=== PATIENT | male | born 1995 | race Caucasian/White ===

== ENCOUNTER 2024-01-31 12:28 | Emergency (ER) | payer SELFPAY ==
[2024-01-31 12:33] VITALS: BP 140/104
[2024-01-31 13:04] LABS: % Basophils 0.8 % (0-2); % Eosinophils 6.9 % (0-6); % Immature Granulocytes 0.4 % (0-0.5); % Lymphocytes 21.1 % (20.5-51.1); % Monocytes 5.1 % (1.7-9.3); % Neutrophils 65.7 % (42.2-75.2); Absolute Basophils 0.1 10^3/uL (0-0.2); Absolute Eosinophils 0.7 10^3/uL (0-0.7); Absolute Lymphocytes 2.2 10^3/uL (1.2-3.4); Absolute Monocytes 0.5 10^3/uL (0.1-0.6); Absolute Neutrophils 6.8 10^3/uL (1.4-6.5); Hematocrit 45.7 % (39.0-52.0); Mean Corpuscular Hgb 30.2 pg (27.0-31.0); Mean Corpuscular Volume 86.4 fL (80.0-94.0); Mean Platelet Volume 10.2 fL (7.4-10.4); Nucleated Red Blood Cells % 0 % (-); Platelet Count 222 10^3/uL (130-400); Red Blood Cell Count 5.29 10^6/uL (4.70-6.10); Red Cell Dist. Width 12.6 % (11.5-14.5); White Blood Cell Count 10.4 10^3/uL (4.8-10.8)
[2024-01-31 13:20] LABS: ALT (SGPT) 21 U/L (0-50); AST (SGOT) 34 U/L (17-59); Albumin 4.8 g/dl (3.5-5.0); Alkaline Phosphatase 60 U/L (38-126); Blood Urea Nitrogen 14 mg/dl (9-20); Calcium 9.9 mg/dl (8.4-10.2); Carbon Dioxide 28 mmol/L (22-30); Chloride 105 mmol/L (98-107); Glucose 99 mg/dl (70-99); Lipase 84 U/L (23-300); Potassium 3.6 mmol/L (3.5-5.1); Sodium 142 mmol/L (135-145); Total Bilirubin 1.1 mg/dl (0.2-1.3); Total Protein 7.6 g/dl (6.3-8.2); eGFR > 60.00
--- NOTE | 2024-01-31 14:34 | ED.GENMED ---
History of Present Illness
General
Chief Complaint: Abdominal Symptoms
Source: patient
Exam Limitations: none
Time Seen by Provider: 01/31/24 13:47
Travel History
Have you had any contact with someone who has COVID-19?: No
Do you have any symptoms of coronavirus? Fever > 100 degrees, chills, cough, shortness of breath, sore throat, loss of taste or smell, muscle aches, or headache?: No
History of Present Illness
History of Present Illness:
Patient with vomiting at 5 AM. Has mostly improved but not totally resolved. No abdominal pain. No fever. No diarrhea or bloody stools. Thinks he ate bad sushi the other day. Symptoms are minimal at this time
Past History
Past History
ED Past Medical History: Asthma and Other (Crohn's disease, Iron def anemia, Cellulitis)
ED Past Surgical History: None
Social History
Tobacco: Non-smoker
Alcohol: Occasional
Drug: None
Personal: Single
Living: alone
Employment: Employed
Review of Systems
Review of Systems
All Other Systems: Not applicable
Constitutional: Denies fever
ABD/GI: Denies abdominal pain
Phy Exam
Physical Exam
Physical Exam:
GENERAL: Alert and oriented in no apparent distress
EYE: Orbits normal.
NECK: Supple
CARDIAC: Regular rate and rhythm without any obvious murmurs.
LUNGS: Clear breath sounds,normal
ABDOMEN: Soft, without focal tenderness or distention
NEUROLOGICAL: Alert and oriented , grossly non-focal
SKIN: Warm and dry, no rash or lesion, no discoloration, skin intact.
MUSCULOSKELETAL: No edema,no deformity.Good color
PSYCH: Normal and appropriate interaction.
Course
Orders/Labs/Results
Orders:
Orders
01/31/24 12:58
Complete Blood Count/With Diff Urgent
Comprehensive Metabolic Panel Urgent
Lipase Urgent
Abnormal Lab Results
01/31/24
12:58
Absolute Neuts (auto) 6.8 H 10^3/uL
(1.4-6.5)
Eosinophils % 6.9 H %
(0-6)
01/31/24 12:58
01/31/24 12:58
Vital Signs
Initial and Last Documented VS:
Initial Vital Signs
Temp Pulse Resp BP Pulse Ox
98.0 F 48 16 140/104 100
01/31/24 12:33 01/31/24 12:33 01/31/24 12:33 01/31/24 12:33 01/31/24 12:33
Last Documented Vital Signs
Temp Pulse Resp BP Pulse Ox
98.0 F 48 16 140/104 100
01/31/24 12:33 01/31/24 12:33 01/31/24 12:33 01/31/24 12:33 01/31/24 12:33
MDM/Problems Addressed
Differential Diagnosis Includes:
Patient with no acute surgical findings. Is nontoxic in no distress. Not dehydrated. Improving symptoms. No indication for radiologic testing. Symptomatic treatment and follow-up
*Pulse Oximetry
Patient hypoxic: no
*Critical Care Note
Total Time (30-74mins, 75-104mins- exclusive of procedures): Not Applicable
ED Attending Note
-
Portions of this chart may have been created with voice recognition software.� Occasional wrong word or��sound alike� substitutions may have occurred due to the inherent limitations of voice recognition software.
Discharge Plan
Departure
Patient Disposition: Home (Routine Discharge)
Date of Disposition: 01/31/24
Time of Disposition: 14:35
Patient with high blood pressure during this ER visit?: Yes
Discharge Problem:
Acute vomiting
Instructions: Nausea and Vomiting, Adult (DC), BLOOD PRESSURE
Prescriptions:
New
ondansetron 4 mg tablet,disintegrating
4 mg PO TIDPRN PRN (Reason: nausea/vomiting) Qty: 7 0RF
No Action
benzonatate 100 MG capsule
100 mg PO TIDPRN PRN (Reason: cough) Qty: 30 0RF
epinephrine [EpiPen] 0.3 MG/0.3/SYRINGE auto-injector
0.3 mg IM ONCE Qty: 1 0RF
methylprednisolone [Medrol (Sudhir)] 4 MG tablets,dose pack
4 tab PO . DIRECT Qty: 1 0RF
Referrals:
UNKNOWN - PT DOES,NOT KNOW [Family Provider] -
Stand Alone Forms: Return to Work
Activity Restrictions/Additional Instructions:
Recheck with persistent symptoms abdominal pain fever or if not resolved in 1 to 2 days
Interventions
Interventions:
*ED COVID-19 Vaccine History Last Done: 01/31/24 12:33
KX-Wmctfo-Ebapanziky Assessment Last Done: 01/31/24 14:17
Discharge Date and Time
Print Language: CHILEAN
[2024-01-31 14:47] VITALS: BP 124/80
== END 2024-01-31 14:50 | disposition home or self-care (01) ==
LOC: EMR 12:28
PROVIDERS: Emergency Medicine; EMERGENCY PHYSICIAN Emergency Medicine
DX: R11.2 Nausea with vomiting, unspecified (principal); J45.909 Unspecified asthma, uncomplicated; K50.90 Crohn's disease, unspecified, without complications; D50.9 Iron deficiency anemia, unspecified
CPT/HCPCS: 99283; 80053; 83690; 85025

== ENCOUNTER 2024-02-23 08:54 | Emergency (ER) | payer SELFPAY ==
[2024-02-23 08:55] VITALS: BP 129/70
--- NOTE | 2024-02-23 09:26 | ED.GENMED ---
History of Present Illness
<Mikayla Christian PA-C - Last Filed: 02/23/24 22:45>
General
Chief Complaint: Oral/Mouth Problem
Source: patient
Exam Limitations: none
Time Seen by Provider: 02/23/24 09:15
Nursing documentation reviewed up to this point in time: agreed with
History of Present Illness
History of Present Illness:
Patient is a 28 year old male with hx asthma, Crohns presenting to the emergency department for evaluation of dental pain. Patient states that he has intermittent dental pain over the past year which usually self resolves with ibuprofen and Orajel.
Patient states that yesterday the pain was more severe. Patient reports pain in his right upper molars and left lower molars. He did take ibuprofen but did not notice much improvement. Patient came to the emergency department for further
evaluation.
Patient denies any associated fever, chills, nausea, vomiting. Patient denies any chest pain or shortness of breath.
Patient does not currently have medical or dental insurance. He has not seen a dentist in many years.
Patient currently vapes. No history of IV drug use
Past History
<Mikayla Christian PA-C - Last Filed: 02/23/24 22:45>
Past History
ED Past Medical History: Asthma and Other (Crohn's disease, Iron def anemia, Cellulitis)
ED Past Surgical History: None
Social History
Tobacco: Non-smoker
Alcohol: Occasional
Drug: None
Personal: Single
Living: alone
Employment: Employed
Review of Systems
<ILENE Ambrosio Last Filed: 02/23/24 22:45>
Review of Systems
Allergies reviewed?: Yes
All Other Systems: ROS reviewed and negative except as documented in HPI and ROS
Phy Exam
<Mikayla Christian PA-C - Last Filed: 02/23/24 22:45>
Physical Exam
Physical Exam:
Vitals: Patient's vital signs are stable. Afebrile
General: Patient is well appearing, no acute distress. Nontoxic appearing
Skin: Warm and dry, no rashes or lesions
Head: Normocephalic, atraumatic
Eyes: Sclera nonicteric. EOMs intact. No nystagmus.
Mouth: Poor dentition. Multiple dental caries. Tenderness overlying gingiva above tooth #1 and tooth #17. No evidence of abscess. Patient handling oral secretions. No elevation of tongue.
Throat: Uvula midline. protecting airway
Neck: Normal ROM, no cervical spine tenderness, no meningismus. No cervical lymphadenopathy. No erythema, swelling or tenderness of neck
Cardiac: Regular rate and rhythm, no murmurs.
Pulm: Normal respiratory effort, no wheezes, rales, rhonchi heard on exam.
Abdomen: No abdominal tenderness.
Extremities: No evidence of cyanosis or edema
Neuro: AAOx3. CN II-XII intact. No focal neurologic deficits.
Psychiatric: Normal affect.
Course
<Mikayla Christian PA-C - Last Filed: 02/23/24 22:45>
Orders/Labs/Results
Orders:
Orders
02/23/24 10:25
Acetaminophen [Tylenol] 650 mg PO NOW STA
Amoxicillin 875 mg/Clav 125 mg [Augmentin 875 mg/125 mg] 1 tablet PO NOW STA
Vital Signs
Initial and Last Documented VS:
Initial Vital Signs
Temp Pulse Resp BP Pulse Ox
97.6 F 63 16 129/70 98
02/23/24 08:55 02/23/24 08:55 02/23/24 08:55 02/23/24 08:55 02/23/24 08:55
Last Documented Vital Signs
Temp Pulse Resp BP Pulse Ox
97.6 F 72 18 130/91 99
02/23/24 08:55 02/23/24 11:04 02/23/24 11:04 02/23/24 11:04 02/23/24 11:04
<Darian Baxter MD - Last Filed: 02/23/24 17:16>
Orders/Labs/Results
Orders:
Orders
02/23/24 10:25
Acetaminophen [Tylenol] 650 mg PO NOW STA
Amoxicillin 875 mg/Clav 125 mg [Augmentin 875 mg/125 mg] 1 tablet PO NOW STA
Vital Signs
Initial and Last Documented VS:
Initial Vital Signs
Temp Pulse Resp BP Pulse Ox
97.6 F 63 16 129/70 98
02/23/24 08:55 02/23/24 08:55 02/23/24 08:55 02/23/24 08:55 02/23/24 08:55
Last Documented Vital Signs
Temp Pulse Resp BP Pulse Ox
97.6 F 72 18 130/91 99
02/23/24 08:55 02/23/24 11:04 02/23/24 11:04 02/23/24 11:04 02/23/24 11:04
<Mikayla Christian PA-C - Last Filed: 02/23/24 22:45>
MDM/Problems Addressed
Differential Diagnosis Includes:
Not limited to: Dental infection, dental caries, dental pain, dental abscess, etc.
MDM/Problems Addressed:
28 year old male presenting with acute on chronic dental pain. Patient uninsured and has not seen dentist in many years. No fevers, chills, difficulty swallowing, chest pain, or shortness of breath. No history of IVDU. Vitals stable. Exam as above.
Patient with poor dentition and multiple visible dental caries. No obvious abscess. No oral swelling or elevation of tongue. Uvula is midline. Patient is protecting airway. No erythema, swelling, or tenderness of anterior neck. Did provide patient
with multiple free dental clinics in the area. Stressed importance of prompt dental follow-up for definitive management of dental pain. Will provide patient with pain control and antibiotics. Stable for discharge
Chronic conditions affecting care:
Poor dentition, dental caries
Acute Exacerbation and/or Progression of Chronic Illness:
N/A
<Mikayla Christian PA-C - Last Filed: 02/23/24 22:45>
*Pulse Oximetry
Patient hypoxic: no
*EKG
Interpreted by ED Provider?: NA
*Banking Center Manager Interpretation
Rate: Banking Center Manager- N/A
*Critical Care Note
Total Time (30-74mins, 75-104mins- exclusive of procedures): Not Applicable
ED Attending Note
<Mikayla Christian PA-C - Last Filed: 02/23/24 22:45>
-
Portions of this chart may have been created with voice recognition software.� Occasional wrong word or��sound alike� substitutions may have occurred due to the inherent limitations of voice recognition software.
<Darian Baxter MD - Last Filed: 02/23/24 17:16>
ED Attending Note
Patient seen and examined by attending physician: Yes
ED Attending Note:
I have seen and evaluated the patient with a [id number] encounter. I have spoken to the advance practicer provider and involved in the medical history, the physical exam, medical decision making.
Evaluation and management service: agree unless noted differently below.
Results interpretation: agree unless noted differently below.
Focused HPI: 28-year-old male presents with dental pain upper right molar and bottom left molar. He says these have been chronic and intermittent. He has poor dentition and has not followed up with a dentist in quite some time because he does not
have dental insurance. He says that since last night symptoms have been constant and unremitting which is why he finally came to the ER. Denies any facial swelling. No fevers or chills. No trauma. No other complaints.
Physical exam: Awake alert not in distress. Normal vitals. He has very poor dentition. He has visible dental caries in molars bilaterally. He has some mild tenderness to percussion tooth #1 and 17. No significant swelling. No tongue elevation.
Medical Decision Makin-year-old male presents with dental pain. Poor dentition and dental caries. Tenderness to percussion as above. No swelling. Suspect likely related to early dental infection and dental caries. Patient badly needs
dental evaluation. He does not have dental insurance. I provided him a list of free dental clinics that are available without any insurance in the area. Will provide short-term pain control and antibiotic prescription. I did offer dental block
but patient declined. Queried PDMP and no red flags.
Discharge Plan
Departure
Patient Disposition: Home (Routine Discharge)
Date of Disposition: 02/23/24
Time of Disposition: 10:26
Patient with high blood pressure during this ER visit?: No
Condition: Good
Covid-19: Not Applicable
Discharge Problem:
Pain due to dental caries
Instructions: Tooth Decay, Adult (DC), Dental Pain ED
Prescriptions:
New
oxycodone 5 mg tablet
5 mg PO Q6H PRN (Reason: Pain) Qty: 10 0RF
amoxicillin-pot clavulanate 875-125 mg tablet
1 tab PO BID Qty: 14 0RF
Referrals:
[facility] - Next open appointment
NONE,* [Family Provider] -
Activity Restrictions/Additional Instructions:
RETURN TO THE EMERGENCY DEPARTMENT WITH FEVERS, CHILLS, CHEST PAIN, SHORTNESS OF BREATH, DIFFICULTY SWALLOWING, SIGNS OF SEVERE DEHYDRATION, INTRACTABLE PAIN, SIGNIFICANT REDNESS/SWELLING IN MOUTH, WORSENING IN CURRENT SYMPTOMS, OR ANY OTHER CONCERNS
-A prescription for an antibiotic has been sent to your pharmacy. You should take this twice a day for the next 7 days. You were given your first dose in the emergency department today. Your next dose should be taken this evening.
-A prescription for oxycodone has been sent to your pharmacy. This should be taken for severe pain. This may cause drowsiness and should not be taken prior to driving. In addition�you should take Motrin and/or Tylenol as needed for pain.
-You should stick to a soft diet over the next few days. It is important to stay well-hydrated.
-As discussed�it is imperative that you are seen by a dentist for further dental care. Multiple
Interventions
Interventions:
*Risk Screen - Suicide Last Done: 02/23/24 10:35
*General Assessment Last Done: 02/23/24 10:35
*Neglect/Abuse Screening Last Done: 02/23/24 10:35
ED- Fall Risk Assessment Last Done: 02/23/24 10:35
*ED COVID-19 Vaccine History Last Done: 02/23/24 10:35
*Nursing Disposition Last Done: 02/23/24 11:07
Discharge Date and Time
Discharge Date/Time: 02/23/24 11:08
Print Language: [place]AST [place]
[2024-02-23 10:35] VITALS: BMI 23.6
[2024-02-23] MEDS: AUGMENTIN 875 MG/125 MG 1 TABLET PO (11:02)
[2024-02-23] MEDS: TYLENOL 650 MG PO (11:02)
[2024-02-23 11:04] VITALS: BP 130/91
== END 2024-02-23 11:08 | disposition home or self-care (01) ==
LOC: EMR 08:54
PROVIDERS: EMERGENCY PHYSICIAN Emergency Medicine
DX: K02.9 Dental caries, unspecified (principal)
CPT/HCPCS: 99283

== ENCOUNTER 2024-04-16 14:47 | Emergency (ER) | payer SELFPAY ==
[2024-04-16 14:55] VITALS: BP 137/85
[2024-04-16 15:38] LABS: COVID-19 Antigen Negative (Negative)
--- NOTE | 2024-04-16 16:21 | ED.GENMED ---
History of Present Illness
General
Chief Complaint: Cold/Flu/URI Symptoms
Source: patient
Exam Limitations: none
Time Seen by Provider: 04/16/24 15:31
Nursing documentation reviewed up to this point in time: agreed with
History of Present Illness
History of Present Illness:
29-year-old male with past ministry of asthma Crohn's disease presenting to the emergency department today with concerns of cough and sore throat. Started this morning claims that his work colleague claimed to have had strep yesterday but did not
tell until the end of the day and had multiple close exposures with him. Denies any fever chest pain shortness of breath.
Past History
Past History
ED Past Medical History: Asthma and Other (Crohn's disease, Iron def anemia, Cellulitis)
ED Past Surgical History: None
Social History
Tobacco: Non-smoker
Alcohol: Occasional
Drug: None
Personal: Single
Living: alone
Employment: Employed
Review of Systems
Review of Systems
Allergies reviewed?: Yes
All Other Systems: ROS reviewed and negative except as documented in HPI and ROS
Phy Exam
Physical Exam
Physical Exam:
GENERAL: Alert , in no apparent distress
EYE: pupils equal and reactive
NECK: Supple, no significant adenopathy.
ENT: o/p clr, mmm.
CARDIAC: Regular rate and rhythm .
LUNGS: Clear breath sounds bilaterally, no acute respiratory distress, no wheezes/rales/rhonchi
ABDOMEN: Soft, without focal tenderness, no r/g, no cvat
NEUROLOGICAL: Alert and oriented, no focal neuro deficits
SKIN: Warm and dry, skin intact.
MUSCULOSKELETAL: No edema, well perfused.
PSYCH: Normal and appropriate interaction.
Mild irritation of the posterior pharynx without significant exudate noted significant tonsillar swelling uvula midline grossly patent airway
Course
Orders/Labs/Results
Orders:
Orders
04/16/24 15:03
CR Chest - 2 Views Urgent
Comment:
Reason For Exam: cough
04/16/24 15:07
COVID-19 Antigen Urgent
Source: Nasal Swab
Rapid Strep Group A Urgent
JUAN Source: Throat/Pharynx
Specimen Description:
Date Specimen was Collected: 04/16/24
Time Specimen was Collected: 14:59
Throat Culture, Comprehensive Urgent
JUAN Source: Throat/Pharynx
Specimen Description:
Date Specimen was Collected: 04/16/24
Time Specimen was Collected: 14:59
04/16/24 16:18
Dexamethasone [Decadron] 10 mg PO NOW STA
Vital Signs
Initial and Last Documented VS:
Initial Vital Signs
Temp Pulse Resp BP Pulse Ox
98.3 F 64 18 137/85 99
04/16/24 14:55 04/16/24 14:55 04/16/24 14:55 04/16/24 14:55 04/16/24 14:55
Last Documented Vital Signs
Temp Pulse Resp BP Pulse Ox
98.3 F 64 18 137/85 99
04/16/24 14:55 04/16/24 14:55 04/16/24 14:55 04/16/24 14:55 04/16/24 14:55
MDM/Problems Addressed
MDM/Problems Addressed:
29-year-old male presenting to the emergency department today with concerns of cough sore throat. Here he is very well-appearing vital signs are normal posterior pharynx is mildly red but no significant swelling to the tonsils no exudate patient
does have a cough and no significant fever. Concerning the strep throat is very unlikely. Most likely viral syndrome return precautions given.
*Critical Care Note
Total Time (30-74mins, 75-104mins- exclusive of procedures): Not Applicable
ED Attending Note
-
Portions of this chart may have been created with voice recognition software.� Occasional wrong word or��sound alike� substitutions may have occurred due to the inherent limitations of voice recognition software.
Discharge Plan
Departure
Patient Disposition: Home (Routine Discharge)
Date of Disposition: 04/16/24
Time of Disposition: 16:26
Patient with high blood pressure during this ER visit?: No
Condition: Good
Covid-19: Not Applicable
Discharge Problem:
Acute viral syndrome
Instructions: Viral Syndrome (DC)
Prescriptions:
No Action
oxycodone 5 mg tablet
5 mg PO Q6H PRN (Reason: Pain) Qty: 10 0RF
amoxicillin-pot clavulanate 875-125 mg tablet
1 tab PO BID Qty: 14 0RF
Referrals:
NONE,* [Family Provider] -
Activity Restrictions/Additional Instructions:
You came to the emergency department today with concerns of cough and sore throat.. Here you had a reassuring assessment. This is likely viral syndrome. You were given a steroid to help with symptoms you and otherwise take symptomatic medications
at home. Return to the emergency department for any worsening, new or concerning symptoms.
Interventions
Interventions:
*Risk Screen - Suicide Last Done: 04/16/24 14:55
*General Assessment Last Done: 04/16/24 14:55
*Neglect/Abuse Screening Last Done: 04/16/24 14:55
Discharge Date and Time
Print Language: FAROESE
[2024-04-16] MEDS: DECADRON 10 MG PO (16:39)
== END 2024-04-16 16:53 | disposition home or self-care (01) ==
LOC: EMR 14:47
PROVIDERS: Emergency Medicine; EMERGENCY PHYSICIAN Emergency Medicine
DX: B34.9 Viral infection, unspecified (principal); J45.909 Unspecified asthma, uncomplicated; K50.90 Crohn's disease, unspecified, without complications; D50.9 Iron deficiency anemia, unspecified
CPT/HCPCS: 99283; 71046; 87070; 87811; 87880

== ENCOUNTER 2024-04-27 16:46 | Emergency (ER) | payer SELFPAY ==
[2024-04-27 16:47] VITALS: BP 126/79
--- NOTE | 2024-04-27 17:31 | ED.GENMED ---
History of Present Illness
General
Chief Complaint: Skin Problem
Time Seen by Provider: 04/27/24 17:31
History of Present Illness
History of Present Illness:
HPI: Patient presents with skin abnormality of the left hand. He thought he had a spider bite to the dorsal aspect of the left hand. He noticed that it seemed to open up a little bit more at work and his boss recommended he come in here for
further evaluation.
EXAM:
GENERAL: Well appearing in no distress
HEENT: Moist oral mucosa
NEUROLOGIC: Excellent strength all extremities, no coordination deficits
PSYCHIATRIC: Appropriate mental status, normal insight and judgement
EXTREMITIES: Nontender, no edema,, there is a very tiny bite wound that may be related to a spider bite but there is no evidence of cellulitis in the surrounding tissue
SKIN: The patient is heavily tattooed
TIME OF INITIAL ENCOUNTER: 5:30 PM
NUMBER AND COMPLEXITY OF PROBLEMS ADDRESSED AT THE ENCOUNTER
� Chronic conditions affecting care: Asthma, Crohn's, iron deficiency anemia
� Acute Exacerbation and/or Progression of Chronic Illness: This is an acute problem
� Differential Diagnosis includes: Spider bite with local inflammatory reaction, infection, abrasion
AMOUNT AND/OR COMPLEXITY OF DATA TO BE REVIEWED AND ANALYZED
� I performed an independent evaluation of and my interpretation is:
EKG:
CT:
X-rays:
Laboratory Studies:
Other:
� Review of other/old records: I reviewed records, the patient CBC from this past January was unremarkable
� Clinical information was obtained by an independent historian: None needed
� Prescriptions/Medications Considered but not given:
� Further testing considered but not performed:
RISK OF COMPLICATIONS AND/OR MORBIDITY OR MORTALITY OF PATIENT MANAGEMENT
� Social determinants of health affecting care: Lives at home, works at [employer]
� Discussion with other providers:
� Escalation of care including admission/observation vs risk of discharge considered: The patient's physical examination is relatively unremarkable. There are not even any significant inflammatory changes around the area of
concern. Given patient's concern, I am sending a prescription to his pharmacy however I recommend that he not start it and let symptoms worsen.
Past History
Past History
ED Past Medical History: Asthma and Other (Crohn's disease, Iron def anemia, Cellulitis)
ED Past Surgical History: None
Social History
Tobacco: Non-smoker
Alcohol: Occasional
Drug: None
Personal: Single
Living: alone
Employment: Employed
Phy Exam
Physical Exam
Physical Exam:
See HPI
Course
Vital Signs
Initial and Last Documented VS:
Initial Vital Signs
Temp Pulse Resp BP Pulse Ox
98.0 F 64 18 126/79 99
04/27/24 16:47 04/27/24 16:47 04/27/24 16:47 04/27/24 16:47 04/27/24 16:47
Last Documented Vital Signs
Temp Pulse Resp BP Pulse Ox
98.0 F 64 18 126/79 99
04/27/24 16:47 04/27/24 16:47 04/27/24 16:47 04/27/24 16:47 04/27/24 16:47
*Critical Care Note
Total Time (30-74mins, 75-104mins- exclusive of procedures): Not Applicable
ED Attending Note
-
Portions of this chart may have been created with voice recognition software.� Occasional wrong word or��sound alike� substitutions may have occurred due to the inherent limitations of voice recognition software.
Discharge Plan
Departure
Prescriptions:
No Action
oxycodone 5 mg tablet
5 mg PO Q6H PRN (Reason: Pain) Qty: 10 0RF
amoxicillin-pot clavulanate 875-125 mg tablet
1 tab PO BID Qty: 14 0RF
Referrals:
NONE,* [Family Provider] -
Interventions
Interventions:
*Risk Screen - Suicide Last Done: 04/27/24 17:25
*General Assessment Last Done: 04/27/24 17:25
*Neglect/Abuse Screening Last Done: 04/27/24 17:25
ED-Skin Assessment Last Done: 04/27/24 17:25
Discharge Date and Time
Print Language: SETSWA[place]
[2024-04-27 18:16] VITALS: BP 121/64
== END 2024-04-27 18:17 | disposition home or self-care (01) ==
LOC: EMR 16:46
PROVIDERS: EMERGENCY PHYSICIAN Emergency Medicine
DX: S60.562A Insect bite (nonvenomous) of left hand, initial encounter (principal); W57.XXXA Bitten or stung by nonvenomous insect and other nonvenomous arthropods, initial encounter; J45.909 Unspecified asthma, uncomplicated; K50.90 Crohn's disease, unspecified, without complications
CPT/HCPCS: 99282

== ENCOUNTER 2024-08-30 08:21 | Emergency (ER) | payer SELFPAY ==
[2024-08-30 08:23] VITALS: BP 152/102
--- NOTE | 2024-08-30 08:56 | EDRN ---
Pt has severe dental pain from R upper molar that just started last night, unable to get a dental appt for a couple of days.
[2024-08-30 08:57] VITALS: BMI 20.1
--- NOTE | 2024-08-30 08:59 | EDRN ---
Dr. Pulido ED resident in room w/ pt.
--- NOTE | 2024-08-30 09:07 | ED.GENMED ---
History of Present Illness
<Ashok Lyon MD, Resident - Last Filed: 08/30/24 11:00>
General
Chief Complaint: Oral/Mouth Problem
Source: patient
Time Seen by Provider: 08/30/24 09:06
Nursing documentation reviewed up to this point in time: agreed with
Travel History
Have you traveled to any high risk areas for coronavirus over the past 14 days?: No
Have you had any contact with someone who has COVID-19?: No
Do you have any symptoms of coronavirus? Fever > 100 degrees, chills, cough, shortness of breath, sore throat, loss of taste or smell, muscle aches, or headache?: No
History of Present Illness
History of Present Illness:
29-year-old male with PMH of Crohn's disease, asthma, who presented to the emergency department today with tooth pain that started last night. Patient rates pain '15/10' in the right upper molar with swelling that started about a week ago and
worsened last night. The pain does not radiate. Patient stated that he is not able to get in with his dentist until next week and decided to come in because of the worsening pain. Patient reports that he thinks his problem is from poor oral care.
He has had similar problems in the past but not to this degree. He has tried warm salt water in the past but did not do much. He does not take any pain medication at home but took '50 mg' Advil this morning which did not help. He denies headache,
or vision changes.
Past History
<Ashok Lyon MD, Resident - Last Filed: 08/30/24 11:00>
Past History
ED Past Medical History: Asthma and Other (Crohn's disease, Iron def anemia, Cellulitis)
ED Past Surgical History: None
Social History
Tobacco: Non-smoker
Alcohol: Occasional
Drug: None
Personal: Single
Living: alone
Employment: Employed
Review of Systems
<Ashok Lyon MD, Resident - Last Filed: 08/30/24 11:00>
Review of Systems
Other source history: family
Constitutional: Reports no symptoms
EENT: Reports mouth pain and other (Gum swelling)
Respiratory: Reports no symptoms
Cardiac: Reports no symptoms
ABD/GI: Reports no symptoms
: Reports no symptoms
Skin: Reports no symptoms
Neurological: Reports no symptoms
Psychiatric: Reports no symptoms
Phy Exam
<Ashok Lyon MD, Resident - Last Filed: 08/30/24 11:00>
General Physical Exam
General Presentation: well appearing and no apparent distress
General age: appears stated age
General Skin: warm and dry
General Habitus: normal
General Mental: alert
General Hydration: appears well hydrated
ENT Exam
ENT Exam: EOMI, neck supple, swallowing well and other (Swollen gums, poor dentition)
Additional ENT: Fractured right upper molar tooth
Eye Exam
Eye Exam: PERRL and EOMI
Cardiovascular Exam
Cardiovascular Exam: regular rate/rhythm, no edema, no murmur and normal peripheral pulses
Pulmonary Exam
Pulmonary Exam: lungs clear, no respiratory distress, no rales, no crackles and no wheezing
Course
<Ashok Lyon MD, Resident - Last Filed: 08/30/24 11:00>
Orders/Labs/Results
Orders:
Orders
08/30/24 09:40
Amoxicillin [Amoxil] 500 mg PO NOW STA
Ketorolac [Toradol] 15 mg IM NOW STA
Vital Signs
Initial and Last Documented VS:
Initial Vital Signs
Temp Pulse Resp BP Pulse Ox
97.5 F 55 16 152/102 98
08/30/24 08:23 08/30/24 08:23 08/30/24 08:23 08/30/24 08:23 08/30/24 08:23
Last Documented Vital Signs
Temp Pulse Resp BP Pulse Ox
97.5 F 90 16 158/89 100
08/30/24 08:23 08/30/24 10:10 08/30/24 10:10 08/30/24 10:10 08/30/24 10:10
<Manish Shen, DO - Last Filed: 08/30/24 10:01>
Orders/Labs/Results
Orders:
Orders
08/30/24 09:40
Amoxicillin [Amoxil] 500 mg PO NOW STA
Ketorolac [Toradol] 15 mg IM NOW STA
Vital Signs
Initial and Last Documented VS:
Initial Vital Signs
Temp Pulse Resp BP Pulse Ox
97.5 F 55 16 152/102 98
08/30/24 08:23 08/30/24 08:23 08/30/24 08:23 08/30/24 08:23 08/30/24 08:23
Last Documented Vital Signs
Temp Pulse Resp BP Pulse Ox
97.5 F 90 16 158/89 100
08/30/24 08:23 08/30/24 10:10 08/30/24 10:10 08/30/24 10:10 08/30/24 10:10
<Ashok Lyon MD, Resident - Last Filed: 08/30/24 11:00>
MDM/Problems Addressed
Differential Diagnosis Includes:
Poor oral care, infected root canal
MDM/Problems Addressed:
29-year-old male who presented to the emergency department today with right upper tooth pain that started yesterday.
Will treat with 15mg Toradol for pain and 500 mg amoxicillin for 5 days.
Patient will follow-up with outpatient dentist as scheduled.
<Ashok Lyon MD, Resident - Last Filed: 08/30/24 11:00>
*Critical Care Note
Total Time (30-74mins, 75-104mins- exclusive of procedures): Not Applicable
ED Attending Note
<Ashok Lyon MD, Resident - Last Filed: 08/30/24 11:00>
-
Portions of this chart may have been created with voice recognition software.� Occasional wrong word or��sound alike� substitutions may have occurred due to the inherent limitations of voice recognition software.
<Manish Shen, DO - Last Filed: 08/30/24 10:01>
ED Attending Note
Patient seen and examined by attending physician: Yes
I performed a history and physical exam of patient and discussed management with resident, I reviewed resident's note and agree with documented findings and plan of care.: Yes
ED Attending Note:
I have reviewed and agree with history and treatment plan by Ashok Lyon MD. 29-year-old male
Discharge Plan
Departure
Patient Disposition: Home (Routine Discharge)
Date of Disposition: 08/30/24
Time of Disposition: 09:53
Patient with high blood pressure during this ER visit?: Yes
Condition: Good
Covid-19: Negative COVID-19
Discharge Problem:
Pain, dental
Instructions: Fractured Tooth (DC), Dental Pain (DC), BLOOD PRESSURE
Prescriptions:
New
amoxicillin 500 mg tablet
500 mg PO TID 5 Days Qty: 14 0RF
No Action
oxycodone 5 mg tablet
5 mg PO Q6H PRN (Reason: Pain) Qty: 10 0RF
amoxicillin-pot clavulanate 875-125 mg tablet
1 tab PO BID Qty: 14 0RF
cephalexin 500 mg tablet
500 mg PO TID Qty: 21 0RF
Referrals:
NONE,* [Family Provider] -
Interventions
Interventions:
*Risk Screen - Suicide Last Done: 08/30/24 08:24
*General Assessment Last Done: 08/30/24 08:58
*Neglect/Abuse Screening Last Done: 08/30/24 08:24
ED- Fall Risk Assessment Last Done: 08/30/24 08:59
*ED COVID-19 Vaccine History Last Done: 08/30/24 08:58
*Nursing Disposition Last Done: 08/30/24 10:15
Discharge Date and Time
Discharge Date/Time: 08/30/24 10:15
Print Language: CHINESE
[2024-08-30 09:09] VITALS: BMI 19.0
--- NOTE | 2024-08-30 09:39 | EDRN ---
Dr. Shen in w/ pt now.
[2024-08-30] MEDS: AMOXIL 500 MG PO (10:02)
[2024-08-30] MEDS: TORADOL 15 MG IM (10:02)
[2024-08-30 10:10] VITALS: BP 158/89
== END 2024-08-30 10:15 | disposition home or self-care (01) ==
LOC: EMR 08:21
PROVIDERS: EMERGENCY PHYSICIAN Emergency Medicine
DX: K08.89 Other specified disorders of teeth and supporting structures (principal); J45.909 Unspecified asthma, uncomplicated
CPT/HCPCS: 99284; 96372

== ENCOUNTER 2024-10-05 14:04 | Emergency (ER) | payer SELFPAY ==
--- NOTE | 2024-10-05 14:30 | ED.GENMED ---
ED Provider Triage
<Thomas Stewart PA-C - Last Filed: 10/05/24 14:33>
-
Patient seen by provider in Triage?: Seen in Triage
Follow-up attestation: A medical screening examination has been initiated by a qualified medical provider. Based on the assessment performed at this time, it has been determined that an emergent medical condition may exist and the patient has been
informed that further medical evaluation and possible additional diagnostic testing may be needed.
HPI: 29-year-old male presenting the ER for evaluation of pain to the right upper jaw that started yesterday accompanied with right-sided facial swelling. Patient has been dealing with his dental clinic for similar in the past and reports that he
would likely need surgery but has been unable to do this as of yet. Was last on antibiotics 2 months patient otherwise stable. Brought to results pending for further evaluation with anticipated discharge.
GENERAL: Alert , in no apparent distress
EYE: No visual abnormalities.
NECK: Trachea midline
ENT: No visible abnormalities.
LUNGS: No acute respiratory distress
NEUROLOGICAL: Alert and oriented
SKIN: Skin intact. No visible changes.
MUSCULOSKELETAL: Moving extremities normally
PSYCH: Normal and appropriate interaction.
This is a medical evaluation conducted in person to initiate diagnostic evaluation and provide initial therapeutics. Please see further documentation by the treating clinician.
History of Present Illness
<Thomas Stewart PA-C - Last Filed: 10/05/24 14:33>
General
Chief Complaint: Dental Problem
Time Seen by Provider: 10/05/24 15:30
<Renae Gomez PA-C - Last Filed: 10/05/24 16:20>
General
Source: patient
Exam Limitations: none
History of Present Illness
History of Present Illness:
29yoM with a history of Crohn's disease not on medications and asthma presenting for evaluation of facial swelling. Patient has a history of dental caries and is scheduled to have several molars extracted in 2 weeks. He started with right
maxillary swelling yesterday as well as right upper dental pain. He has been taking ibuprofen and the swelling has improved. He went to work today and was sent home early due to his facial swelling. He denies any fevers, chills, dysphagia.
Patient is here requesting antibiotics to hold him over until his procedure in 2 weeks.
Past History
<Thomas Stewart PA-C - Last Filed: 10/05/24 14:33>
Past History
ED Past Medical History: Asthma and Other (Crohn's disease, Iron def anemia, Cellulitis)
ED Past Surgical History: None
Social History
Tobacco: Non-smoker
Alcohol: Occasional
Drug: None
Personal: Single
Living: alone
Employment: Employed
Phy Exam
<Renae Gomez PA-C - Last Filed: 10/05/24 16:20>
General Physical Exam
General Presentation: well appearing and no apparent distress
General age: appears stated age
General Skin: warm and dry
General Habitus: normal
General Mental: alert
ENT Exam
ENT Exam: TM's normal, neck supple, normocephalic and other (Small to moderate amount of swelling to R maxillary region. Dental caries noted throughout. No periapical abscess visualized. No elevation of floor of mouth. Normal phonation and patient
tolerating oral secretions.)
Neurological Exam
Neurological Exam: alert
Wolfgang Coma Scale
Eye Opening: Spontaneous
Verbal Response: Oriented
Motor Response: Obeys Commands
GCS Total Score: 15
Skin Exam
Skin Exam: normal color and warm/dry
Psychiatric Exam
Psychiatric Exam: normal mood/affect
Course
<ILENE Eagle Last Filed: 10/05/24 14:33>
Orders/Labs/Results
Orders:
Orders
10/05/24 15:42
Dexamethasone [Decadron] 10 mg PO NOW STA
Vital Signs
Initial and Last Documented VS:
Initial Vital Signs
Temp Pulse Resp Pulse Ox
98.8 F 76 20 100
10/05/24 14:30 10/05/24 14:30 10/05/24 14:30 10/05/24 14:30
Last Documented Vital Signs
Temp Pulse Resp Pulse Ox
98.8 F 76 20 100
10/05/24 14:30 10/05/24 14:30 10/05/24 14:30 10/05/24 14:30
<Renae Gomez PA-C - Last Filed: 10/05/24 16:20>
Orders/Labs/Results
Orders:
Orders
10/05/24 15:42
Dexamethasone [Decadron] 10 mg PO NOW STA
Vital Signs
Initial and Last Documented VS:
Initial Vital Signs
Temp Pulse Resp Pulse Ox
98.8 F 76 20 100
10/05/24 14:30 10/05/24 14:30 10/05/24 14:30 10/05/24 14:30
Last Documented Vital Signs
Temp Pulse Resp Pulse Ox
98.8 F 76 20 100
10/05/24 14:30 10/05/24 14:30 10/05/24 14:30 10/05/24 14:30
<Renae Gomez PA-C - Last Filed: 10/05/24 16:20>
MDM/Problems Addressed
Differential Diagnosis Includes:
29yoM here with facial swelling and dental pain. Denies f/c. He is well appearing in no distress. R maxillary facial swelling noted on exam with dental caries. No visualized periapical abscess. No signs of facial cellulitis or Vinh's. Patient was
started on a course of Augmentin. Dose of Decadron also given. He is scheduled to have dental extractions in 2 weeks. He was advised to f/u with his dentist and ED return precautions discussed. Patient in agreement with plan and was discharged in
stable condition.
<Renae Gomez PA-C - Last Filed: 10/05/24 16:20>
*Critical Care Note
Total Time (30-74mins, 75-104mins- exclusive of procedures): Not Applicable
ED Attending Note
<Thomas Stewart PA-C - Last Filed: 10/05/24 14:33>
-
Portions of this chart may have been created with voice recognition software.� Occasional wrong word or��sound alike� substitutions may have occurred due to the inherent limitations of voice recognition software.
Discharge Plan
Departure
Patient Disposition: Home (Routine Discharge)
Date of Disposition: 10/05/24
Time of Disposition: 15:42
Patient with high blood pressure during this ER visit?: No
Discharge Problem:
Dental infection
Instructions: Dental Pain (DC)
Prescriptions:
New
amoxicillin-pot clavulanate 875-125 mg tablet
1 tab PO BID Qty: 14 0RF
No Action
oxycodone 5 mg tablet
5 mg PO Q6H PRN (Reason: Pain) Qty: 10 0RF
amoxicillin-pot clavulanate 875-125 mg tablet
1 tab PO BID Qty: 14 0RF
cephalexin 500 mg tablet
500 mg PO TID Qty: 21 0RF
amoxicillin 500 mg tablet
500 mg PO TID 5 Days Qty: 14 0RF
Referrals:
NONE,* [Family Provider] -
Stand Alone Forms: Return to Work
Activity Restrictions/Additional Instructions:
Take antibiotics as prescribed. Take Tylenol and ibuprofen as needed for pain.
Please follow-up with your dentist. Return to the ER with any worsening symptoms or fevers.
Interventions
Interventions:
*Risk Screen - Suicide Last Done: 10/05/24 14:30
*General Assessment Last Done: 10/05/24 14:30
*Neglect/Abuse Screening Last Done: 10/05/24 14:30
*ED COVID-19 Vaccine History Last Done: 10/05/24 14:44
*Nursing Disposition Last Done: 10/05/24 16:04
Discharge Date and Time
Discharge Date/Time: 10/05/24 16:05
Print Language: TURKMEN
[2024-10-05] MEDS: DECADRON 10 MG PO (15:54)
== END 2024-10-05 16:05 | disposition home or self-care (01) ==
LOC: EMR 14:04
PROVIDERS: EMERGENCY PHYSICIAN Emergency Medicine
DX: K04.7 Periapical abscess without sinus (principal); J45.909 Unspecified asthma, uncomplicated
CPT/HCPCS: 99283

== ENCOUNTER 2024-12-24 12:52 | Emergency (ER) | payer SELFPAY ==
[2024-12-24 12:59] VITALS: BP 130/93
--- NOTE | 2024-12-24 13:13 | ED.GENMED ---
History of Present Illness
General
Chief Complaint: Cold/Flu/URI Symptoms
Source: patient
Time Seen by Provider: 12/24/24 13:05
History of Present Illness
History of Present Illness:
29-year-old male with past medical history of asthma and Crohn's disease presenting to the emergency department for evaluation of 3 days of upper respiratory/cold-like symptoms including sore throat, congestion, cough, mild sputum production and
feeling warm but never took temperature to assess if he had fever. He does note that there was a sick contact at work who had similar symptoms, patient states he is not sure if they had COVID and wanted to be tested for this. Patient does admit to
smoking and states he is prone to coughing due to this. No recent travel. No recent antibiotics. No other concerns presently.
Past History
Past History
ED Past Medical History: Asthma and Other (Crohn's disease, Iron def anemia, Cellulitis)
ED Past Surgical History: None
Social History
Tobacco: Smoker
Alcohol: Occasional
Drug: None
Personal: Single
Living: alone
Employment: Employed
Review of Systems
Review of Systems
All Other Systems: ROS reviewed and negative except as documented in HPI and ROS
Phy Exam
Physical Exam
Physical Exam:
GENERAL: Alert , in no apparent distress
EYE: conjunctiva clear
NECK: Supple
ENT: o/p clr, mmm. Cobblestoning within the posterior oropharynx with mild erythema but no tonsillar edema or exudates, tolerating secretions, no stridor or trismus
CARDIAC: Regular rate and rhythm
LUNGS: Clear breath sounds bilaterally, no acute respiratory distress, no wheezes/rales/rhonchi
NEUROLOGICAL: Alert and oriented
SKIN: Warm and dry, skin intact.
MUSCULOSKELETAL: well perfused.
PSYCH: Normal and appropriate interaction.
Scores
Heart Failure Risk
Heart Failure Risk Score: Not Applicable
Heart Score for Chest Pain Patients
STEMI patient?: Not applicable
Withdrawal Assessment of Alcohol
Withdrawal Assessment Completed?: Not applicable
Course
Orders/Labs/Results
Orders:
Orders
12/24/24 13:01
COVID-19 Antigen Urgent
Source: Nasal Swab
Influenza A+B Rapid Molecular Urgent
JUAN Source: Nasal Swab
Specimen Description:
Vital Signs
Initial and Last Documented VS:
Initial Vital Signs
Temp Pulse Resp Pulse Ox
98.1 F 77 16 98
12/24/24 12:54 12/24/24 12:54 12/24/24 12:54 12/24/24 12:54
Last Documented Vital Signs
Temp Pulse Resp BP Pulse Ox
98.1 F 77 16 130/93 98
12/24/24 12:54 12/24/24 12:54 12/24/24 12:54 12/24/24 12:59 12/24/24 12:54
MDM/Problems Addressed
Differential Diagnosis Includes:
covid, flu, viral syndrome, pneumonia, strep throat/pharyngitis/tonsillitis, BAIL ATT[employer]ER
MDM/Problems Addressed:
29-year-old male presenting to the emergency department for evaluation of cold and flulike symptoms for the last 3 days, sick contact at work with similar symptoms. Patient overall very well-appearing, nontoxic. No tonsillar edema or exudates.
Tolerating secretions without difficulty. I suspect mild viral URI. COVID and flu testing ordered in triage. Discussed obtaining chest x-ray with patient who declines x-ray imaging. Discussed supportive [id number] measures. Anticipate
discharge home.
*Pulse Oximetry
Patient hypoxic: no
*Critical Care Note
Total Time (30-74mins, 75-104mins- exclusive of procedures): Not Applicable
Patient Management
Escalation/DeEscalation of care consider admission/obs:
Patient covid and flu negative. Remains stable. Aware of return precautions to ED
ED Attending Note
-
Portions of this chart may have been created with voice recognition software.� Occasional wrong word or��sound alike� substitutions may have occurred due to the inherent limitations of voice recognition software.
Discharge Plan
Departure
Patient Disposition: Home (Routine Discharge)
Date of Disposition: 12/24/24
Time of Disposition: 13:45
Patient with high blood pressure during this ER visit?: No
Discharge Problem:
Upper respiratory infection
Instructions: Viral Syndrome (DC)
Prescriptions:
No Action
oxycodone 5 mg tablet
5 mg PO Q6H PRN (Reason: Pain) Qty: 10 0RF
amoxicillin-pot clavulanate 875-125 mg tablet
1 tab PO BID Qty: 14 0RF
cephalexin 500 mg tablet
500 mg PO TID Qty: 21 0RF
amoxicillin 500 mg tablet
500 mg PO TID 5 Days Qty: 14 0RF
amoxicillin-pot clavulanate 875-125 mg tablet
1 tab PO BID Qty: 14 0RF
Referrals:
NONE,* [Family Provider] -
Stand Alone Forms: Return to Work
Interventions
Interventions:
*Risk Screen - Suicide Last Done: 12/24/24 12:54
*Neglect/Abuse Screening Last Done: 12/24/24 12:54
*Nursing Disposition Last Done: 12/24/24 13:57
ED- Pulmonary Assessment Last Done: 12/24/24 13:20
Discharge Date and Time
Discharge Date/Time: 12/24/24 13:57
Print Language: TAJIK
[2024-12-24 13:31] LABS: COVID-19 Antigen Negative (Negative)
== END 2024-12-24 13:57 | disposition home or self-care (01) ==
LOC: EMR 12:52
PROVIDERS: Emergency Medicine; EMERGENCY PHYSICIAN Emergency Medicine
DX: J06.9 Acute upper respiratory infection, unspecified (principal); J45.909 Unspecified asthma, uncomplicated; K50.90 Crohn's disease, unspecified, without complications; F17.200 Nicotine dependence, unspecified, uncomplicated; D50.9 Iron deficiency anemia, unspecified
CPT/HCPCS: 99282; 87502; 87811